=== PATIENT | male | born 1970 | race Caucasian/White ===

== ENCOUNTER → 2021-09-27 | Outpatient (CLI) | payer OTHER, SELFPAY ==
--- NOTE | 2021-09-27 07:02 | CT_ITS ---
STUDY: CT MAXILLOFACIAL SINUSES REASON FOR EXAM: Male, 51 years old. SINUSITIS. Sinus congestion. RADIATION DOSAGE (If Supplied By Facility): CTDIvol = ( 33.06 ) mGy, DLP = ( 788.40 ) mGycm TECHNIQUE: The patient was scanned in a multi detector CT scanner. High resolution axial imaging was performed without the administration of intravenous contrast material. Sagittal and coronal images were reconstructed. Individualized dose optimization techniques were used for this CT. COMPARISON: Comparison is made with prior study of 01/18/2017. FINDINGS: Small submental nodes are seen bilaterally. FRONTAL SINUSES: Normal aeration, without mucosal inflammatory disease. ETHMOIDAL SINUSES: Partial opacification of the left ethmoid sinus. MAXILLARY SINUSES: There is opacification of the left maxillary sinus. SPHENOIDAL SINUSES: Normal aeration, without mucosal inflammatory disease. There is obstruction of the left ostiomeatal complex due to mucosal hypertrophy. There is a dotty bullosa of the right middle turbinate. Normal bilateral inferior turbinates. There is a left sided nasal septal deviation, but without a nasal septal spur. There is patency of the bilateral nasal airways. There is evidence of dental implants. The visualized bilateral orbital contents are normal. CT/Sinus/Facial Bone IMPRESSION: Opacification of the left maxillary sinus with obliteration of the left ostiomeatal complex. The opacification has progressed as compared to prior study. Mucosal thickening of the left ethmoid sinus. Left-sided nasal septal deviation. Electronically Signed: Addison Powers MD at 9:02 EDT ,
== END | disposition home or self-care (01) ==
PROVIDERS: PCP Nurse Practitioner Family; Referring Provider Otolaryngology; Visit Provider Otolaryngology
DX: J32.8 Other chronic sinusitis (principal); J34.2 Deviated nasal septum
CPT/HCPCS: 70486

== ENCOUNTER → 2021-12-29 | Outpatient (CLI) | payer OTHER, SELFPAY ==
[2021-12-29 13:17] LABS: Anion Gap 7 (5-15); BUN 18 mg/dL (7-18); BUN/Creat Ratio 19.6 RATIO (10-20); Chloride 105 mmol/L (98-107); Creatinine, Serum 0.92 mg/dL (0.70-1.30); EST Glomerular Filtration Rate 93 mL/min (>60); Est Glom Filt Rate - Afr Amer 113 mL/min (>60); Glucose 100 mg/dL (74-106); Sodium Level 137 mmol/L (136-145)
== END | disposition home or self-care (01) ==
LOC: LAB 11:39
PROVIDERS: PCP Nurse Practitioner Family; Referring Provider Otolaryngology; Visit Provider Otolaryngology
DX: Z01.818 Encounter for other preprocedural examination (principal)
CPT/HCPCS: 36415; 80048

== ENCOUNTER → 2022-03-02 | Outpatient (CLI) | payer OTHER, SELFPAY ==
--- NOTE | 2022-03-02 | ETH_PTH ---
PATIENT: BEN CAI LOC: [facility] U#:[id number] AGE/SX: 51/M ROOM: RE03/02/[address]: Dr. Eduard Ford MD : 1970 BED: DIS: 03/02/2022 SPEC #: [id number] RECD: 03/02/22 14:54 STATUS: DIPAK KAMI #: [id number] DIANA: 03/02/22 00:[address]: Eduard Ford DEPT: SURGICAL PATHOLOGY RECD BY: [place] ENTERED: 03/03/22 09:24 SP TYPE: ETH TISS OTHR DR: Pratik Mi, [facility] Tissues: A - Ethmoid sinus, NOS B - Ethmoid sinus, NOS Procedures: Decalcification bone/plaque Surgery Specimen Level III HEADER OPERATION: Functional endoscopic sinus surgery, septoplasty PRE-OP DIAGNOSIS: Chronic sinusitis TISSUE SUBMITTED: A ? Left sinus contents, B ? Right sinus contents MICROSCOPIC DIAGNOSIS A. Left sinus contents, curettings: Polypoid fragments of benign respiratory mucosa with chronic inflammation. Fragments of bone with no significant pathologic change. See comment. B. Right sinus contents, curettings: Polypoid fragments of benign respiratory mucosa with chronic inflammation. Fragments of bone with no significant pathologic change. See comment. AM:keenan 03/04/2022 COMMENT A & B. The findings are consistent with chronic sinusitis. Clinical correlation is suggested. MICROSCOPIC DESCRIPTION Slides are reviewed. GROSS DESCRIPTION A - Received in fixative is one container labeled with the patient's name and designated left sinus contents. The specimen consists of multiple irregular fragments of light fontaine soft tissue that in aggregate measure 3 x 2.5 x 0.2 cm. The specimen is totally submitted in one cassette after decalcification. B - Received in fixative is one container labeled with the patient's name and designated right sinus contents. The specimen consists of multiple irregular fragments of light fontaine soft tissue that in aggregate measure 2.5 x 2.5 x 0.2 cm. The specimen is totally submitted in one cassette after decalcification. / AM:keenan 03/03/2022 TC:3 CPT: 25893 x2, 45905 x2
== END | disposition home or self-care (01) ==
PROVIDERS: PCP Nurse Practitioner Family; Referring Provider Otolaryngology; Visit Provider Otolaryngology
DX: J32.9 Chronic sinusitis, unspecified (principal)
CPT/HCPCS: 88304; 88305; 88311

== ENCOUNTER 2022-03-13 05:55 | Emergency (ER) | payer OTHER, SELFPAY ==
[2022-03-13 05:57] VITALS: PULSE 65; RESP 15; TEMP 37; O2SAT 96; BMI 30.2
[2022-03-13] MEDS: Lidocaine 2% /Epi 1:100 (20ml) 20 ML VIAL INFILT (06:29)
[2022-03-13] MEDS: Oxymetazoline 0.05% 1 SPRAY SPRAY.BTL 2 SPRAY NASAL (06:29)
--- NOTE | 2022-03-13 06:40 | EDS_ITS ---
HPI History of Present Illness Chief Complaint: Nosebleed Narrative Narrative: Patient is a 51-year-old male with no significant past medical history. He states he had dental procedure which led to a rupture into his sinus. He states that secondary to this he followed up with ENT who performed sinus surgery on him roughly 2 weeks ago. He states he had packing in for 1 week and then this was removed. He states that he was doing well but that last night into this morning he awoke with a runny nose. He states when he wiped it was blood and then he noticed that the bleeding went from the right nostril to the left. He denies any trauma prior to the bleeding beginning this morning. He denies any history of bleeding disorder or blood thinner use. He states he was bleeding for approximately 1 hour and as he could not get the bleeding under control presents for evaluation. PFSH PFSH Medical History no medical history no medical history Social History Smoking Status: Never smoker ROS ROS ED Constitutional Constitutional ED: Denies chills or fever(s) ENT ENT ED: Reports other Details: Positive nosebleed ; Denies sore throat Cardiovascular Cardiovascular: Denies chest pain Respiratory/Chest Respiratory/Chest: Denies cough or dyspnea Gastrointestinal Gastrointestinal: Denies abdominal pain, diarrhea, nausea or vomiting Genitourinary Genitourinary ED: Denies dysuria Musculoskeletal Musculoskeletal: Denies myalgias Integumentary Denies rash Neurologic Neurologic: Denies headache(s) Hematologic/Lymphatic Hematologic/Lymphatic: Denies easy bleeding or easy bruising EXAM Physical Exam Const Vital Signs: 03/13/22 05:57 Temperature 98.6 F Temperature Source Temporal Pulse Rate 65 Respiratory Rate 15 Pulse Ox 96 Oxygen Delivery Method Room Air Positive well nourished and well developed General Appearance ED: well developed HEENT HEENT Narrative: Patient has dried blood along the left and right nostrils with internal exam showing a friable septum more so on the right than left with trace ooze of dark blood transversing from the upper right nostril. There is trace amount of dried blood in the posterior pharynx without active bleeding or clot formation present. No airway edema or compromise Eyes PERRL and EOMs intact bilaterally Neck supple Resp normal respiratory effort and clear to auscultation bilaterally Cardio regular rate and regular rhythm Extremity normal to inspection Neuro oriented x3 and CN's II-XII intact bilaterally Sensorium / Orientation: alert Psych mental status grossly normal Skin no rashes or lesions noted MDM MDM MDM Narrative Medical decision making narrative: Patient presented with stable vitals currently has any signs of anemia from acute blood loss and therefore I felt no need for imaging or laboratory studies. Patient had his bilateral nostrils packed with lidocaine with epinephrine soaked cotton balls as well as Afrin. These were kept in place for approximately 20 minutes and once they were removed the patient did not have any active bleeding in either the right or left nostril or down in the posterior pharynx. We discussed possible cauterization or nasal packing but as he does not have 1 specific area of the septum that would require cautery it was not recommended. Also as he is no longer actively bleeding we will hold off on n brady packing. Patient understands that bleeding could recur and that he may need to return to the hospital if he cannot get it under control at home. He is agreeable with this plan of care and states he will follow-up with his ENT for repeat evaluation. Discharge Plan Triage Chief Complaint: Nosebleed ED Provider: José Miguel Hewitt Dx/Rx/DC Orders Clinical Impression: Acute anterior epistaxis Instructions: ED Epistaxis (Adult) Primary Care Provider: Pratik Mi NP Referrals: Eduard Ford MD [Med Staff - Active Staff] - Pratik Mi NP, [employer] [Primary Care Provider] - Activity Restrictions/Additional Instructions: If bleeding reoccurs please hold pressure for a minimum of 10 continuous minutes. If bleeding is still continuing after this hold for another 10 minutes. If there is no resolution of the bleeding despite 20 minutes of continuous pressure please return to the ER for repeat evaluation. Disposition Disposition: Home, Self Care
== END 2022-03-13 07:18 | disposition home or self-care (01) ==
PROVIDERS: Emergency Provider Emergency Medicine; PCP Nurse Practitioner Family; Visit Provider Emergency Medicine
DX: R04.0 Epistaxis (principal)
CPT/HCPCS: 30901; 99282